=== PATIENT | female | born 1985 | race Two or more races ===

== ENCOUNTER 2018-08-06 01:37 | Inpatient (IN) | payer OTHER ==
[2018-08-06 02:08] LABS: APPEARANCE,URINE CLOUDY; BILIRUBIN,URINE NEGATIVE (NEGATIVE); COLOR,URINE YELLOW; GLUCOSE, URINE NEGATIVE (NEGATIVE); KETONES,URINE NEGATIVE (NEGATIVE); LEUKOCYTE ESTERASE,URINE NEGATIVE (NEGATIVE); NITRITE,URINE NEGATIVE (NEGATIVE); PROTEIN,URINE NEGATIVE (NEGATIVE); UROBILINOGEN,URINE NEGATIVE mg/dL (<2.0)
[2018-08-06] MEDS ORDERED: NORMAL SALINE 250 ML IV PRN (02:24)
[2018-08-06] MEDS ORDERED: RINGERS SOLUTION,LACTATED 1,000 ML IV ONE (02:24)
[2018-08-06] MEDS ORDERED: RINGERS SOLUTION,LACTATED 1,000 ML IV PRN (02:24)
[2018-08-06 02:27] LABS: URINE AMPHETAMINES SCREEN NEGATIVE; URINE BARBITURATES SCREEN NEGATIVE; URINE BENZODIAZEPINES SCREEN NEGATIVE; URINE COCAINE SCREEN NEGATIVE; URINE MARIJUANA (THC) SCREEN NEGATIVE; URINE METHADONE SCREEN NEGATIVE; URINE PHENCYCLIDINE SCREEN NEGATIVE
[2018-08-06 03:01] LABS: ABSOLUTE BASOPHILS # (AUTO) 0.1 10^3/uL (0.0-0.2); ABSOLUTE EOSINOPHILS # (AUTO) 0.2 10^3/uL (0.0-0.6); ABSOLUTE LYMPHOCYTES (AUTO) 2.7 10^3/uL (0.5-4.7); ABSOLUTE MONOCYTES (AUTO) 0.8 10^3/uL (0.1-1.4); ABSOLUTE NEUT (AUTO) 10.3 10^3/uL (1.7-8.2); BASOPHILS % (AUTO) 0.5 % (0-2); EOSINOPHILS % (AUTO) 1.1 % (0-6); HEMOGLOBIN 12.7 g/dL (12.0-15.5); LYMPHOCYTES % (AUTO) 19.2 % (13-45); MEAN CORPUSCULAR HEMOGLOBIN 30.6 pg (27.0-33.4); MEAN CORPUSCULAR HGB CONC 34.4 g/dL (32.0-36.0); MEAN CORPUSCULAR VOLUME 89 fl (80-97); PLATELET COUNT 209 10^3/uL (150-450); RED BLOOD COUNT 4.16 10^6/uL (3.72-5.28); RED CELL DISTRIBUTION WIDTH 13.8 % (11.5-14.0); SEGMENTED NEUTROPHILS % (AUTO) 73.2 % (42-78); TOTAL CELLS COUNTED % (AUTO) 100 %; WHITE BLOOD COUNT 14.1 10^3/uL (4.0-10.5)
[2018-08-06] MEDS ORDERED: MISOPROSTOL 0.2 MG TABLET ONE (03:45)
[2018-08-06] MEDS ORDERED: OXYTOCIN 10 UNIT/ML VIAL ONE (03:45)
[2018-08-06] MEDS ORDERED: OXYTOCIN/NORMAL SALINE 0 UNIT/0 ML RTUINJ ONE (03:45)
[2018-08-06] MEDS ORDERED: LIDOCAINE 1% INJ-PF (10 MG/ML) 30 ML SDV ONE (03:45)
[2018-08-06] MEDS ORDERED: OXYTOCIN/NORMAL SALINE 20 UNIT/1,000 ML RTUINJ ONE (05:35)
[2018-08-06] MEDS ORDERED: OXYTOCIN/NORMAL SALINE 20 UNIT/1,000 ML RTUINJ IV PRN ×2 (05:38→14:53)
--- NOTE | 2018-08-06 06:23 | Admission Physical ---
Datetime Report Generated by CPN: 08/06/2018 06:23 CURRENT ADMISSION Chief Complaint: Suspected Ruptured Membranes Chief Complaint Other: Leakage of fluid Indication for Induction: PROM Admit Impression : Admit Plan: Admit to Unit; Initiate Labor Induction Protocol ALLERGIES Medication Allergies: Unknown Medication Allergies: No Allergy Information Available (08/06/2018) Latex: No Latex Allergies OBSTETRICAL HISTORY EDC: 08/19/2018 00:00 : 2 Para: 1 Cesareans: 1 Gestational Diabetes: No Rh Sensitization: No Incompetent Cervix: No BEENA: No Infertility: No ART Treatment: No Uterine Anomaly: No IUGR: No Hx Previous C/S: Yes Macrosomia: No Hx Loss/Stillborn: No PIH: No Hx : No Placenta Previa/Abruption: No Depression/PP Depression: No PTL/PROM: No Post Hemorrhage: No Obstetrical History Comments: G1:2014 c/section for NRFHT x2 true knots 8 lbs 4oz G2: current poly, desires TOLAC MEDICAL HISTORY Diabetes: No Blood Transfusion: No Pulmonary Disease (Asthma, TB): No Breast Disease: No Hypertension: No Biotechnician Surgery: No Heart Disease: No Hosp/Surgery: Yes Autoimmune Disorder: No Anesthetic Complications: No Kidney Disease: No Abnormal Pap Smear: No Neuro/Epilepsy: No Psychiatric Disorders: No Other Medical Diseases: No Hepatitis/Liver Disease: No Significant Family History: No Varicosities/Phlebitis: No Trauma/Violence : No Thyroid Dysfunction: No Medical History Comments: lumpectomy, c/section, left ACL repair, fill in tooth INFECTIOUS HISTORY Gonorrhea: No Genital Herpes: No Chlamydia: No Tuberculosis: No Syphilis: No Hepatitis: No HIV/AIDS Exposure: No Rash or Viral Illness: No HPV: No PHYSICAL EXAM General: Normal HEENT: Deferred Neurologic: Normal Thyroid: Deferred Heart: Normal Lungs: Normal Breast: Normal Back: Normal Abdomen: Normal Genitourinary Exam: Normal Extremities: Normal DTRs: Normal Pelvic Type: Adequate Vital Signs: Reviewed; Within Normal Limits VAGINAL EXAM Dilatation: 1 Effacement: 50 Station: -2 Contraction Comments: irreg. MEMBRANES Membranes: Ruptured FETUS A EGA: 38.1 Monitoring: External US FHR- Baseline: 140 Variability: Moderate 6-25bpm Accelerations: 15X15 Decelerations: None FHR Category: Category I Admit Comment: Patient signed TOLAC consents already, reviewed up to 1% risk of uterine rupture and high risk of mortality and or morbidity. Patient's prior in 2014 for NRFHTs in, states reached 6cm. INFORMED CONSENT Signature: with User ID: [email or web address]
[2018-08-06] MEDS ORDERED: PROMETHAZINE HCL INJ 25 MG/1 ML VIAL ONE (10:22)
[2018-08-06] MEDS ORDERED: NALBUPHINE HCL INJ 10 MG/1 ML AMPULE ONE ×2 (10:22→14:09)
[2018-08-06] MEDS ORDERED: DIPHENHYDRAMINE HCL 25 MG CAPSULE PO PRN (14:53)
[2018-08-06] MEDS ORDERED: MEASLES,MUMPS&RUBELLA VACC/PF 0.5 ML VIAL SUBCUT PRN (14:53)
[2018-08-06] MEDS ORDERED: DIPH/PERTUSS(ACELL)/TETANUS VAC/PF 0.5 ML SYR (>=10YO) IM PRN (14:53)
[2018-08-06] MEDS ORDERED: PROMETHAZINE HCL INJ 25 MG/1 ML VIAL IV PRN (14:53)
[2018-08-06] MEDS ORDERED: PSEUDOEPHEDRINE HCL 30 MG TABLET PO PRN (14:53)
[2018-08-06] MEDS ORDERED: BENZOCAINE/MENTHOL AEROSOL SPRAY 56 ML TOP PRN (14:53)
[2018-08-06] MEDS ORDERED: PROMETHAZINE HCL 25 MG SUPP.RECT PR PRN (14:53)
[2018-08-06] MEDS ORDERED: DIBUCAINE 1% OINTMENT 56 GM TP PRN (14:53)
[2018-08-06] MEDS ORDERED: GLYCERIN/WITCH HAZEL LEAF 1 EACH MED..PAD TP PRN (14:53)
[2018-08-06] MEDS ORDERED: MAGNESIUM HYDROXIDE SUSP 30 ML UDCUP PO PRN (14:53)
[2018-08-06] MEDS ORDERED: ACETAMINOPHEN 650 MG SUPP.RECT PR PRN (14:53)
[2018-08-06] MEDS ORDERED: ZOLPIDEM TARTRATE 5 MG TABLET PO PRN (14:53)
[2018-08-06] MEDS ORDERED: ACETAMINOPHEN WITH CODEINE #3 TABLET PO PRN ×2 (14:53)
[2018-08-06] MEDS ORDERED: NA PHOS,M-B/NA PHOS,DI-BA (ADULT) 133 ML ENEMA PR PRN (14:53)
[2018-08-06] MEDS ORDERED: PROMETHAZINE HCL 25 MG TABLET PO PRN (14:53)
--- NOTE | 2018-08-06 16:45 | Delivery Summary ---
Del Sum A-C Datetime Report Generated by CPN: 08/06/2018 16:45 DELIVERY PERSONNEL DELIVERY PERSONNEL: [id number] Delivery Doctor:: Jyoti Rashid MD Labor and Delivery Nurse:: Nathalie Gan RNstem lead former Nurse:: SHOSHANA Polanco [employer]/DIESEL FITTER MECHANIC: Korin Louise, PRESSING MACHINE OPERATOR MATERNAL INFORMATION Delivery Anesthesia: None Medications After Delivery: Pitocin Drip 20 Units/1000ml NSS Estimated Blood Loss (ml): 200 Maternal Complications: None Provider Comments: uterine inversion diagnosed with uterine exploration. Reduced manually without difficulty. LABOR SUMMARY EDC: 08/19/2018 00:00 No. Babies in Womb: 1 Attempted: Yes Labor Anesthesia: IV Sedation LABOR INFORMATION Reason for Induction: Not Applicable Onset of Labor: 08/06/2018 01:00 Complete Dilatation: 08/06/2018 12:45 Oxytocin: Augmentation Group B Beta Strep: negative Antibiotics # of Doses: 0 Antibiotics Time of Last Dose: n/a Name of Antibiotic Given: n/a Steroids Given: None Reason Steroids Not Administered: Not Applicable MEMBRANES Membranes Rupture Method: Spontaneous Rupture of Membranes: 08/06/2018 01:00 Length of Rupture (hr): 13.00 Amniotic Fluid Color: Clear Amniotic Fluid Amount: Large Amniotic Fluid Odor: Normal STAGES OF LABOR Stage 1 hr: 11 Stage 1 min: 45 Stage 2 hr: 1 Stage 2 min: 15 Stage 3 hr: 0 Stage 3 min: 6 Total Time in Labor hr: 13 Total Time in Labor min: 6 VAGINAL DELIVERY Episiotomy: None Laceration #1: Perineal; Vaginal Laceration Extension #1: Second Degree Laceration Repair: Yes Laceration Repair Note: 2-0 chromic in running locked fashion Sponge Count Correct: Yes Sharps Count Correct: Yes CSECTION DELIVERY Primary Indication: N/A Secondary Indication: N/A CSection Incidence: N/A Labor: N/A Elective: N/A CSection Incision: N/A BABY A INFORMATION Delivery Date/Time: 08/06/2018 14:00 Method of Delivery: Vaginal Born in Route : No : Successful Forceps: N/A Vacuum Extraction: N/A Shoulder Dystocia : No PRESENTATION/POSITION BABY A Presentation: Cephalic Cephalic Presentation: Vertex Vertex Position: Left Occipital Anterior Breech Presentation: N/A PLACENTA INFORMATION BABY A Placenta Delivery Time : 08/06/2018 14:06 Placenta Method of Delivery: Spontaneous Placenta Status: Delivered SCORES BABY A Heart Rate 1 min: >100 bpm Resp Effort 1 min: Good Cry Reflex Irritability 1 min: Cough or Sneeze or Pulls Away Muscle Tone 1 min: Active Motion Color 1 min: Body [place], Extremities Blue Resuscitation Effort 1 min: Tactile Stimulation SCORE 1 MIN: 9 Heart Rate 5 min: >100 bpm Resp Effort 5 min: Good Cry Reflex Irritability 5 min: Cough or Sneeze or Pulls Away Muscle Tone 5 min: Active Motion Color 5 min: Body [place], Extremities Blue Resuscitation Effort 5 min: N/A SCORE 5 MIN: 9 INFANT INFORMATION BABY A Gestational Age at Delivery: 38.1 Gestational Status: Early Term- 37- 38.6 Weeks Outcome : Liveborn Infant Condition : Stable Infant Sex: Male IDENTIFICATION BABY A Infant Verification Date/Time: 08/06/2018 14:58 ID Band Number: [id number] Mother's Name Verified: Yes RN Verifying Infant: B Baidy RN/ D [place] RNC WEIGHT/LENGTH BABY A Birthweight (gm): 3592 Weight (lb): 7 Infant Weight (oz): 15 Infant Length (in): 20.50 Length (cm): 52.07 CORD INFORMATION BABY A No. Cord Vessels: 3 Nuchal Cord : N/A Cord Blood Taken: Yes-For Storage (Mom's Blood type +) Infant Suction: None ASSESSMENT BABY A Skin to Skin: Yes Skin to Skin Time (min): 90 BABY B INFORMATION : N/A SIGNATURES Signature: with User ID: [email or web address]
[2018-08-06] MEDS: DOCUSATE SODIUM 100 MG CAPSULE PO SCH (18:14)
[2018-08-06] MEDS: FERROUS SULFATE 325 MG TABLET PO SCH (18:14)
[2018-08-06] MEDS: IBUPROFEN 800 MG TABLET PO SCH (21:49)
[2018-08-06] MEDS: FAMOTIDINE 20 MG TABLET PO SCH (21:49)
[2018-08-07] MEDS: IBUPROFEN 800 MG TABLET PO SCH ×3 (05:51→22:09)
[2018-08-07 06:57] LABS: HEMATOCRIT 32.8 % (36.0-47.0); MEAN CORPUSCULAR HEMOGLOBIN 30.7 pg (27.0-33.4); MEAN CORPUSCULAR HGB CONC 33.6 g/dL (32.0-36.0); MEAN CORPUSCULAR VOLUME 91 fl (80-97); PLATELET COUNT 170 10^3/uL (150-450); RED BLOOD COUNT 3.59 10^6/uL (3.72-5.28); RED CELL DISTRIBUTION WIDTH 14.2 % (11.5-14.0); WHITE BLOOD COUNT 16.9 10^3/uL (4.0-10.5)
[2018-08-07] MEDS: LORATADINE 10 MG TABLET PO SCH (09:35)
[2018-08-07] MEDS: FAMOTIDINE 20 MG TABLET PO SCH ×4 (09:35→22:10)
[2018-08-07] MEDS: SENNOSIDES/DOCUSATE 8.6-50 MG 1 EACH TABLET PO SCH (09:35)
[2018-08-07] MEDS: FERROUS SULFATE 325 MG TABLET PO SCH ×2 (09:35→17:45)
[2018-08-07] MEDS: DOCUSATE SODIUM 100 MG CAPSULE PO SCH ×2 (09:35→17:45)
--- NOTE | 2018-08-07 09:42 | PDOC PROGRESS REPORT ---
Subjective Progress Note for:: 08/07/18 Subjective:: Patient states that she feels good. Her lochia is decreasing. She is breast- feeding, which is going well. Patient denies chest pain, shortness of breath, fever/chills or nausea/vomiting. She is ambulating and voiding without difficulty. Reason For Visit: Physical Exam - Physical Exam Vital Signs: Temp Pulse Resp BP Pulse Ox 97.9 F 92 18 104/58 L 98 08/07/18 08:02 08/07/18 08:02 08/07/18 08:02 08/07/18 08:02 08/07/18 08:02 Intake & Output 08/06/18 08/07/18 08/08/18 06:59 06:59 06:59 Intake Total 1500 Balance 1500 Weight 85.8 kg General appearance: PRESENT: no acute distress Respiratory exam: PRESENT: clear to auscultation juliann Cardiovascular exam: PRESENT: RRR GI/Abdominal exam: PRESENT: normal bowel sounds, soft - Fundus firm and below umbilicus Extremities exam: ABSENT: calf tenderness, clubbing, full ROM, joint swelling, pedal edema, tenderness, +1 edema, +2 edema, other Result Laboratory Results: 08/07/18 06:35 08/07/18 06:35 WBC 16.9 H RBC 3.59 L Hgb 11.0 L Hct 32.8 L MCV 91 MCH 30.7 MCHC 33.6 RDW 14.2 H Plt Count 170 Assessment & Plan - Diagnosis (1) Vaginal after () Is this a current diagnosis for this admission?: Yes - Time Time Spent with patient: Less than 15 minutes Within: within 48 hours - Plan Summary Plan Summary: Continue care
[2018-08-07] MEDS ORDERED: PRENATAL VITAMIN W DHA CAPSULE PO SCH (10:00)
[2018-08-07] MEDS ORDERED: MEASLES,MUMPS&RUBELLA VACC/PF 0.5 ML VIAL SUBCUT PRN (10:00)
[2018-08-07] MEDS ORDERED: DIPH/PERTUSS(ACELL)/TETANUS VAC/PF 0.5 ML SYR (>=10YO) IM PRN ×2 (10:00)
[2018-08-07] MEDS ORDERED: PROMETHAZINE HCL INJ 25 MG/1 ML VIAL IV PRN (10:30)
[2018-08-07] MEDS: PRENATAL VITAMIN W DHA CAPSULE PO SCH (11:14)
[2018-08-08] MEDS: IBUPROFEN 800 MG TABLET PO SCH ×2 (05:55→13:42)
[2018-08-08 08:31] VITALS: BP 112/65
--- NOTE | 2018-08-08 10:10 | PDOC PROGRESS REPORT ---
Subjective-OB Progress Note for:: 08/08/18 Subjective: Doing well, no c/o Physical Exam (OB) Vital Signs: Temp Pulse Resp BP Pulse Ox 98.2 F 88 18 112/65 94 08/08/18 08:00 08/08/18 08:00 08/08/18 08:00 08/08/18 08:00 08/08/18 08:00 Intake & Output 08/07/18 08/08/18 08/09/18 06:59 06:59 06:59 Intake Total 1500 500 Balance 1500 500 - PIH/Pre-Eclampsia Headache: Absent Epigastric Pain: No Visual Changes: No - Lochia Lochia Amount: Scant < 10 ml Lochia Color: Rubra/Red - Abdomen Description: Soft, Round Hernia Present: No Fundal Description: Firm, Midline Fundal Height: u/u - u/2 Objective-Diagnostic Laboratory: 08/07/18 06:35 Assessment and Plan(PN) - Assessment and Plan (1) Polyhydramnios affecting Is this a current diagnosis for this admission?: Yes (2) Vaginal after () Is this a current diagnosis for this admission?: Yes - Time Spent with Patient Time with patient: Less than 15 minutes Medications reviewed and adjusted accordingly: Yes - Disposition Anticipated Discharge: Home Within: within 24 hours
--- NOTE | 2018-08-08 10:13 | PDOC DISCHARGE SUMMARY ---
Final Diagnosis Discharge Date: 08/08/18 - Final Diagnosis (1) Polyhydramnios affecting Is this a current diagnosis for this admission?: Yes (2) Vaginal after () Is this a current diagnosis for this admission?: Yes Discharge Data - Discharge Medication Home Medications: Loratadine [Claritin] 1 tab PO DAILY 08/06/18 95/Iron Fum/Folic/Dha [ + Dha Combo Pack] 1 each PO DAILY 08/06/18 Reason(s) for Admission: Onset of Labor, Procedures: NST, Ultrasound Intrapartum Procedure(s): Spontaneous Vaginal Delivery Complication(s): Laceration-Vaginal, Laceration-Perineal Laceration-Degree: 2nd - [place] Data Baby 1 Male Weight: 3.6 kg Home with Mother: Yes Complications: No - Diagnosis Test Laboratory: Temp Pulse Resp BP Pulse Ox 98.2 F 88 18 112/65 94 08/08/18 08:00 08/08/18 08:00 08/08/18 08:00 08/08/18 08:00 08/08/18 08:00 08/06/18 08/06/18 08/07/18 01:42 02:51 06:35 RBC 4.16 3.59 L Hgb 12.7 11.0 L Hct 37.0 32.8 L Urine Opiates Screen NEGATIVE - Discharge information/Instructions Discharge Activity: Activity As Tolerated, No Lifting Over 10 Pounds, No Lifting/Push/Pulling, Pelvic Rest Discharge Diet: As Tolerated, Regular Disposition: HOME, SELF-CARE Follow up with: [facility] in: 3, Weeks
[2018-08-08] MEDS: DOCUSATE SODIUM 100 MG CAPSULE PO SCH (10:29)
[2018-08-08] MEDS: FAMOTIDINE 20 MG TABLET PO SCH (10:29)
[2018-08-08] MEDS: LORATADINE 10 MG TABLET PO SCH (10:29)
[2018-08-08] MEDS: FERROUS SULFATE 325 MG TABLET PO SCH (10:29)
[2018-08-08] MEDS: SENNOSIDES/DOCUSATE 8.6-50 MG 1 EACH TABLET PO SCH (10:29)
[2018-08-08] MEDS: PRENATAL VITAMIN W DHA CAPSULE PO SCH (10:29)
== END 2018-08-08 16:50 | disposition home or self-care (01) | DRG 807 ==
LOC: LC 01:37 → LR 02:24 → 2S 16:25
PROVIDERS: ADMIT Obstetrics & Gynecology; ATTEND Obstetrics & Gynecology
PROC: 10E0XZZ Delivery of Products of Conception, External Approach (ICD-10-PCS; principal; 2018-08-06)
DX: O34.211 Maternal care for low transverse scar from previous cesarean delivery (principal); Z37.0 Single live birth; O40.3XX0 Polyhydramnios, third trimester, not applicable or unspecified; N85.8 Other specified noninflammatory disorders of uterus; O70.1 Second degree perineal laceration during delivery; Z3A.38 38 weeks gestation of pregnancy
CPT/HCPCS: 36415; 59025; 80307; 81005; 84112; 85025; 85027; 86592; 86850; 86900; 86901; 86920; 94760; J2300; J2550; J2590; J3490